=== PATIENT | female | born 1955 | race Caucasian/White ===

== ENCOUNTER 2017-12-15 05:37 | Day surgery (SDC) | payer OTHER ==
[~2017-12-15] VITALS: Ht 157.5 cm; Wt 113.8 kg
[~2017-12-15 05:37] MED LIST: Aldactone PO; CELEBREX200 MG PO; CELEXA20 MG PO; DIOVAN; DIOVAN160 MG PO; K-DUR10 ME2 PO; NORVASC10 MG PO; PROTONIX40 MG PO; QUESTRAN4 GM/PACKE PO; Tylenol Regular Stre PO; Vicodin,Lortab 5/500 PO; XANAX; [UNRECOGNIZED DRUG - OTHER]
[2017-12-15 06:02] VITALS: BP 143/67
[2017-12-15 09:56] VITALS: BP 142/81
[2017-12-15 10:41] VITALS: BP 133/64
== END 2017-12-15 10:47 | disposition home or self-care (01) ==
LOC: SDC 05:37
PROC: 0UBC7ZX Excision of Cervix, Via Natural or Artificial Opening, Diagnostic (ICD-10-PCS; principal; 2017-12-15)
DX: D06.9 Carcinoma in situ of cervix, unspecified (principal); Z85.3 Personal history of malignant neoplasm of breast; Z92.21 Personal history of antineoplastic chemotherapy; Z92.3 Personal history of irradiation; I10 Essential (primary) hypertension; E66.9 Obesity, unspecified; Z80.0 Family history of malignant neoplasm of digestive organs; Z80.3 Family history of malignant neoplasm of breast; Z80.1 Family history of malignant neoplasm of trachea, bronchus and lung; Z82.5 Family history of asthma and other chronic lower respiratory diseases; Z68.42 Body mass index [BMI] 45.0-49.9, adult
CPT/HCPCS: 88307; J0131; J1100; J1885; J2250; J2405; J3010